=== PATIENT | female | born 1960 | race African-American/Black ===

== ENCOUNTER 2016-09-10 15:00 | Emergency (ER) | payer BC ==
[~2016-09-10] VITALS: Ht 177.8 cm; Wt 81.7 kg
[~2016-09-10 15:00] MED LIST: ALLEGRA ALLERGY60 MG PO; AUGMENTIN 875875 MG PO; FLONASE 0.05%50 MCG NASAL; NOHOMEMEDICATIONS; NORCO 5-325 TA1 EACH PO; PRILOSEC 20 MG20 MG PO
[2016-09-10 15:24] LABS: URINE BILIRUBIN NEGATIVE (Negative); URINE BLOOD TRACE (Negative); URINE COLOR YELLOW; URINE GLUCOSE-RANDOM* NEGATIVE (Negative); URINE KETONES NEGATIVE (Negative); URINE NITRITE NEGATIVE (Negative); URINE PROTEIN (DIPSTICK) NEGATIVE (Negative); URINE SPECIFIC GRAVITY >= 1.030 (1.003-1.035); URINE UROBILINOGEN 0.2 E.U./dl (0.2-1.0)
[2016-09-10 16:17] LABS: ABSOLUTE NEUTROPHILS 2.6 thou/uL (1.4-8.2); BASOPHILS 0.3 % (0.0-2.0); EOSINOPHILS 0.1 % (0.0-3.0); HEMATOCRIT 36.6 % (37.0-47.0); HEMOGLOBIN 12.8 gm/dL (12.0-15.0); LYMPHOCYTES 39.4 % (24.0-44.0); MCH 31.2 pg (26.0-34.0); MCHC 34.9 g/dL (28.0-37.0); MCV 89.5 fL (80.0-100.0); MONOCYTES 8.1 % (1.0-8.0); PLATELET COUNT 179 thou/uL (150-400); POLYS 52.1 % (36.0-66.0); RBC 4.09 mil/uL (4.20-5.00); RDW 12.4 % (10.5-14.5); WBC 4.9 thou/uL (4.0-11.0)
[2016-09-10 16:20] LABS: MANUAL DIFF NO
[2016-09-10 16:37] LABS: CALCIUM 8.6 mg/dL (8.5-10.1); CREATININE 0.7 mg/dL (0.6-1.0); POTASSIUM 3.6 mmol/L (3.5-5.1)
[2016-09-10 16:41] LABS: ALBUMIN 3.7 g/dL (3.4-5.0); TOTAL BILIRUBIN 0.6 mg/dL (<0.1-1.0); TOTAL PROTEIN 7.3 g/dL (6.4-8.2)
[2016-09-10] MEDS ORDERED: PROBIOTIC1 EAC1 PO (16:49)
[2016-09-10] MEDS ORDERED: ONDANSETRON HCL4 M2 PO (16:49)
[2016-09-10] MEDS ORDERED: LEVSIN-SL0.125 MG SL (16:49)
[2016-09-10 17:32] VITALS: BP 107/52
== END 2016-09-10 17:34 | disposition home or self-care (01) ==
LOC: ER 15:00
PROVIDERS: Nurse Practitioner Family
DX: K58.8 Other irritable bowel syndrome (principal); J45.909 Unspecified asthma, uncomplicated; Z88.1 Allergy status to other antibiotic agents; Z88.8 Allergy status to other drugs, medicaments and biological substances

== ENCOUNTER → 2019-12-11 | Outpatient (CLI) | payer BC ==
[~2019-12-11] MED LIST changes: +LEVSIN-SL0.125 MG SL; +ONDANSETRON HCL4 M2 PO; +PROBIOTIC1 EAC1 PO
== END ==
LOC: LAB 12:36
PROVIDERS: ATTEND Neuromusculoskeletal Medicine & OMM
DX: Z20.828 Contact with and (suspected) exposure to other viral communicable diseases (principal); R05 Cough